=== PATIENT | male | born 1990 | race African-American/Black ===

== ENCOUNTER 2017-09-16 14:10 | Emergency (ER) | payer SELFPAY ==
[2017-09-16 15:44] LABS: ADD UMIC NO; UR ASCORBIC ACID NEGATIVE (NEGATIVE); UR BILIRUBIN (Dip) NEGATIVE (NEGATIVE); UR BLOOD (Dip) NEGATIVE (NEGATIVE); UR CLARITY CLEAR (CLEAR); UR COLOR YELLOW (YELLOW); UR GLUCOSE (Dip) NEGATIVE (NEGATIVE); UR KETONES (Dip) NEGATIVE (NEGATIVE); UR LEUKOCYTE ESTERASE (Dip) NEGATIVE Leu/ul (NEGATIVE); UR NITRITE (Dip) NEGATIVE (NEGATIVE); UR SPECIFIC GRAVITY (Dip) 1.017 (1.003-1.030); UR TOTAL PROTEIN (Dip) NEGATIVE (NEGATIVE); UR UROBILINOGEN (Dip) 2+ mg/dL (NEGATIVE)
[2017-09-16] MEDS: AZITHROMYCIN 250 MG TAB PO (17:24)
[2017-09-16] MEDS: CEFTRIAXONE 250 MG INJ IM (17:24)
== END 2017-09-16 18:09 | disposition home or self-care (01) ==
LOC: FTE 14:10
DX: M54.5 Low back pain (principal); A64 Unspecified sexually transmitted disease; M62.830 Muscle spasm of back; R36.9 Urethral discharge, unspecified
CPT/HCPCS: 71046; 74018; 81003; 87086; 87591; 96372; 99284-25